=== PATIENT | male | born 1965 | race Two or more races ===

== ENCOUNTER 2025-04-23 16:18 | Emergency (ER) | payer BC, MEDICAID ==
[~2025-04-23] VITALS: Ht 167.6 cm; Wt 70.0 kg
[2025-04-23 16:26] VITALS: O2SAT 98
[2025-04-23 17:35] LABS: BASOPHILS % 0.7 % (0.0-2.0); EOSINOPHILS % 2.2 % (0.0-5.0); HEMATOCRIT. 38.0 % (42.0-52.0); HEMOGLOBIN. 13.0 g/dL (14.0-18.0); LYMPHOCYTES % 39.6 % (20.0-50.0); MEAN PLATELET VOLUME 7.1 fl (7.4-10.4); MONOCYTES % 10.9 % (2.0-8.0); NEUTROPHILS % 46.6 % (40.0-76.0); PLATELET 303 x1000/uL (130-400); RED BLOOD CELL COUNT 3.71 mill/uL (4.7-6.1); RED CELL DISTRIBUTION WIDTH 13.3 % (11.6-14.6)
[2025-04-23 17:49] LABS: CREATININE 0.9 mg/dL (0.6-1.3); ETHANOL BLOOD < 10 mg/dL (<10); UREA NITROGEN BLOOD 6 mg/dL (9-23)
[2025-04-23 20:27] LABS: CLARITY URINE CLEAR (CLEAR); COLOR URINE YELLOW (YELLOW); GLUCOSE URINE NEGATIVE (NEGATIVE); KETONES URINE NEGATIVE (NEGATIVE); LEUKOCYTE ESTERASE URINE NEGATIVE (NEGATIVE); NITRITE URINE NEGATIVE (NEGATIVE); OCCULT BLOOD URINE NEGATIVE (NEGATIVE); PH URINE 6.0 (4.5-8.0); PROTEIN URINE NEGATIVE (NEGATIVE); SPECIFIC GRAVITY URINE 1.004 (1.005-1.030); UROBILINOGEN URINE 1.0 E.U./dL (0.2-1.0)
[2025-04-23 20:49] LABS: *AMPHETAMINES SCREEN URINE NEGATIVE (NEGATIVE); *BARBITURATES SCREEN URINE NEGATIVE (NEGATIVE); *BENZODIAZEPINES SCREEN URINE NEGATIVE (NEGATIVE)
[2025-04-23 20:50] LABS: *COCAINE SCREEN URINE NEGATIVE (NEGATIVE); CANNABINOID URINE SCREEN NEGATIVE (NEGATIVE); ECSTASY MDMA SCREEN URINE NEGATIVE (NEGATIVE); METHADONE URINE SCREEN NEGATIVE (NEGATIVE); OPIATES URINE SCREEN NEGATIVE (NEGATIVE); PHENCYCLIDINE URINE SCREEN NEGATIVE (NEGATIVE)
[2025-04-23] MEDS: QUETIAPINE FUMARATE 50MG TABLET PO SCH (20:55)
[2025-04-23] MEDS: LORAZEPAM 1MG TABLET PO STA (22:07)
[2025-04-24] MEDS ORDERED: HYDROXYZINE 25MG TABLET PO PRN (09:45)
[2025-04-24] MEDS: QUETIAPINE FUMARATE 25MG TABLET PO SCH (10:46)
[2025-04-24] MEDS: LORAZEPAM 2MG/ML UD SYRINGE IM NR (18:00)
[2025-04-24] MEDS: DIPHENHYDRAMINE 50MG/ML VIAL IM PRN (18:05)
[2025-04-24] MEDS: QUETIAPINE FUMARATE 50MG TABLET PO SCH (21:28)
[2025-04-25 06:00] VITALS: BP 110/75; PULSE 62; RESP 16; TEMP 36.6; O2SAT 99
== END 2025-04-25 08:57 | disposition home or self-care (01) ==
LOC: ER 16:18
DX: F22 Delusional disorders (principal); I10 Essential (primary) hypertension; Z20.822 Contact with and (suspected) exposure to COVID-19
CPT/HCPCS: 80305; 80048; 81003; 80307; 80329; 80320; 85025; 36415; 99285; 87426; 96372; J1200; J2060; G0480